=== PATIENT | male | born 1990 | race Caucasian/White ===

== ENCOUNTER 2019-05-10 13:07 | Emergency (ER) | payer SELFPAY | END 2019-05-10 13:34 | disposition home or self-care (01) | LOC: SCSER 13:07 | DX: F41.9 Anxiety disorder, unspecified (principal); Z87.891 Personal history of nicotine dependence | CPT/HCPCS: 99281 ==

== ENCOUNTER 2020-02-04 00:16 | Inpatient (IN) | payer SELFPAY ==
[2020-02-04] MEDS ORDERED: Ondansetron PF 4 MG/2 ML Vial IVP PRN (02:44)
[2020-02-04] MEDS ORDERED: Acetaminophen 325 MG TAB PO PRN (02:44)
[2020-02-04] MEDS ORDERED: Ondansetron ODT 4 MG TAB SL PRN (02:44)
[2020-02-04] MEDS ORDERED: Propofol 1,000 MG/100 ML VIAL IV ONE (02:45)
[2020-02-04] MEDS ORDERED: Lorazepam 2 MG/ML VIAL ONE (02:45)
[2020-02-04] MEDS: Lactated Ringer's 1,000 ML IV SCH ×2 (02:54→09:08)
[2020-02-04] MEDS ORDERED: Propofol 1,000 MG/100 ML VIAL IV PRN (02:54)
[2020-02-04] MEDS ORDERED: Morphine 2 MG/ML VIAL SLOW IVP PRN (02:54)
[2020-02-04] MEDS ORDERED: DISCONTINUE PREVIOUS NARCOTIC PAIN MEDICATIONS AND BENZODIAZEPINES FS SCH (02:54)
[2020-02-04] MEDS ORDERED: fentaNYL Citrate/PF 2,000 MCG in Sodium Chloride 0.9% 60 ML IV SCH (02:54)
[2020-02-04] MEDS ORDERED: Fentanyl BOLUS 250 ML IVPB PRN (02:54)
[2020-02-04] MEDS ORDERED: Propofol BOLUS 1,000 MG/100 ML VIAL IV PRN (02:54)
[2020-02-04] MEDS ORDERED: Ventilator Sedation Protocol 1 EACH FS SCH (03:23)
[2020-02-04] MEDS ORDERED: hydrALAZINE 20 MG/ML VIAL SLOW IVP PRN (03:23)
[2020-02-04] MEDS: Lorazepam 2 MG/ML VIAL SLOW IVP PRN ×5 (03:36→14:23)
[2020-02-04] MEDS: levETIRAcetam In NaCl (Iso-Os) 1,000 MG in Premix Bag 1 BAG IVPB SCH ×2 (03:44→16:10)
--- NOTE | 2020-02-04 03:55 | HP ---
REASON FOR ADMISSION: Change in mental status. HISTORY OF PRESENT ILLNESS: This is a 29-year-old male patient, who presented to the emergency room with change in mental status. 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 When EMS arrived, the patient was still able to move, but then he had multiple episodes of vomiting, became more sedated. He did receive 4 mg of Narcan intranasally given by the police, then received 1 mg of IV Narcan, but there was no response and for that reason, he was intubated and transferred to our intensive care unit. Currently, he does have episodes where he starts twitching and stiffening as if he was having seizures. He is being given IV Ativan. PAST PSYCHIATRIC HISTORY: Positive for anxiety. SOCIAL HISTORY: He does have history of drug abuse. Drinks occasionally and socially. He is a former smoker. FAMILY HISTORY: No known family history. REVIEW OF SYSTEMS: Unable to obtain due to the fact that he is intubated. PHYSICAL EXAMINATION: GENERAL: He is intubated. VITAL SIGNS: His blood pressure is 145/101, his heart rate is 164. He is afebrile. HEENT: Head is nontraumatic, normocephalic. Pupils are pinpoint and nonreactive. NECK: Supple. HEART: S1, S2 regular. No murmur. No gallops. No friction rubs. No displacement of PMI. LUNGS: Clear to auscultation bilaterally. No wheezes, rhonchi, no crackles. Bowel sounds are positive. Nontender abdomen. No hepatosplenomegaly. EXTREMITIES: No lower extremity edema. No cyanosis. NEUROLOGIC: He is sedated, but sometimes he does act as if he was having a tonic-clonic seizure. LABORATORY DATA: Blood work shows WBC of 13.5, hemoglobin 14.5, platelets 388. Sodium 144, potassium 3.8, bicarb 24, creatinine 1. His urine tox screen is positive for amphetamine, methamphetamine, cannabinoids. Urinalysis shows rbc's, but no wbc's. A chest x-ray shows no acute cardiopulmonary abnormality. A CT of the head shows no acute intracranial abnormalities. ASSESSMENT AND PLAN: This is a 29-year-old male patient who is presenting after what seems to be in drug overdose versus withdrawal from the medication that he has been on. He is exhibiting possible episodes of seizures while he is on the ventilator. His blood pressure is on the high side. Pulmonary: The patient is intubated and will have pulmonary see him in consultation. Neurology: He possibly has seizures. I will start him on Keppra and we will put him down for an EEG. He will be on IV fluids. For his high blood pressure, we will have him on hydralazine. DVT prophylaxis with SCDs. One hour of critical care time was spent to manage the patient. Job ID: [id number]
[2020-02-04 05:18] VITALS: BMI 17.6
[2020-02-04 06:23] LABS: #Lymphocytes 1.1 thou/uL (1.20-3.40); #Monocytes 0.9 thou/uL (0.11-0.59); #Neutrophils 13.1 thou/uL (1.40-6.50); %Basophils 0.2 % (0.0-1.0); %Eosinophils 0.1 % (0.0-10.0); %Lymphocytes 7.3 % (21.0-51.0); %Monocytes 5.7 % (0.0-10.0); %Neutrophils 86.6 % (42.0-75.0); Hemoglobin 13.4 g/dL (14.0-18.0); Mean Corpuscular HGB CONC 32.6 g/dL (32.0-36.0); Mean Corpuscular Hemoglobin 28.9 pg (27.0-31.0); Mean Corpuscular Volume 88.5 fL (78.0-98.0); Mean Platelet Volume 7.2 fL (7.4-10.4); Platelet Count 303 thou/uL (130-400); RBC Distribution Width 12.3 % (11.5-14.5); Red Blood Cell (RBC) Count 4.63 mill/uL (4.70-6.10); White Blood Cell (WBC) Count 15.2 thou/uL (4.8-10.8)
[2020-02-04 06:48] LABS: Anion Gap 13 mmol/L (10-20); BUN (Urea Nitrogen) 11 mg/dL (8.9-20.6); CK (CPK) 56 U/L (30-200); Calc. Creatinine Clearance 129 mL/min (70-130); Calcium 8.9 mg/dL (7.8-10.44); Carbon Dioxide 26 mmol/L (22-29); Chloride 104 mmol/L (98-107); Estimated GFR-MDRD Greater than 90; Glucose 104 mg/dL (70-105); Sodium 140 mmol/L (136-145)
[2020-02-04 07:40] LABS: Actual Bicarbonate (HCO3a) 23.5 mEq/L (22-28); Base Excess (BEa) 1.6 mEq/L (-2.0 to +3.0); CO2 Tension 29.2 mmHg (35.0-45.0); Calcium, Ionized (arterial) 1.15 mmol/L (1.12-1.30); Carboxyhemoglobin (COHb) 0.1 gm% (0.0-3.0); Hemoglobin (Hb) 13.2 g/dL (14.0-18.0); O2 Tension (PaO2), arterial 142.2 mmHg (80.0-100.0); Potassium - ABG Lab 3.27 mmol/L (3.70-5.30); pH, Arterial 7.52 (7.35-7.45)
[2020-02-04 10:09] LABS: Puncture Site L.R.
--- NOTE | 2020-02-04 13:08 | EEG ---
DATE OF SERVICE: 02/04/2020 ATTENDING PHYSICIAN: Jaci Cleaning MD This EEG was performed using 24-channel [employer] video digital EEG machine with 24 disk electrodes. This was an extended 2 hours 10 minutes of inpatient video EEG recording. Digital analysis of the EEG was done for spike and seizure detection which revealed no abnormalities. BACKGROUND: There is a nonsustained posterior background rhythm. Minimal reactivity is seen with eye opening and closure. PDR 9-10 Hz when sedation was turned off briefly. HYPERVENTILATION: Not performed. PHOTIC STIMULATION: Not performed. SLEEP: No drowsiness. Stage 2 sleep are not observed. EEG DIAGNOSES: 1. Intermittent, irregular theta activity is seen throughout the recording with superimposed beta activity. 2. Nonsustained posterior background rhythm. CLINICAL INTERPRETATION: This EEG is consistent with [id number] generalized nonspecific cerebral dysfunction. No ictal or interictal epileptiform abnormalities seen during the recording. Job ID: [id number] [facility]
[2020-02-04] MEDS ORDERED: Potassium Chloride 40 MEQ in Premix Bag 1 BAG IVPB SCH (13:15)
[2020-02-04] MEDS ORDERED: Potassium Chloride 40 MEQ in Sodium Chloride 0.9% 250 ML 250 ML IVPB SCH (14:00)
--- NOTE | 2020-02-04 14:32 | CON ---
NEUROLOGY CONSULTATION DATE OF CONSULTATION: 02/04/2020 REASON FOR CONSULTATION: Altered mental status. HISTORY OF PRESENT ILLNESS: Mr. Juarez is a 29-year-old male with medical history significant for anxiety and polysubstance abuse, presented to the emergency room with altered mental status. He has history of polysubstance abuse with heroin, fentanyl and methamphetamine. Per mother, he was planning to go to rehab. Per report when the EMS arrived, the patient was able to move, but he had multiple episodes of vomiting and became extremely somnolent. He received 4 mg of Narcan nasally by the police and then 1 mg of IV Narcan with no response, so he was intubated and transferred to the ICU for further evaluation. He was noted to have episodes of twitching and stiffening, so he was given Ativan and started on Keppra. Neurology was consulted for further evaluation. REVIEW OF SYSTEMS: Unobtainable due to patient's mental status. PAST MEDICAL HISTORY: Polysubstance abuse, anxiety. PAST SURGICAL HISTORY: None. FAMILY HISTORY: No known family history. SOCIAL HISTORY: The patient is a former smoker. He has history of polysubstance abuse with heroin, fentanyl and methamphetamine. Per mother, he was planning to go to rehab. ALLERGIES: NKDA PHYSICAL EXAMINATION: VITAL SIGNS: Blood pressure 145/100, pulse 80, respiratory rate 18. GENERAL: The patient is intubated and sedated. He does not follow commands and does not maintain eye contact. CVS: Regular rate and rhythm. CHEST: Clear. ABDOMEN: Soft. NECK: Supple. NEUROLOGICAL: Mental status: The patient is intubated and sedated. He does not follow commands. He does not maintain eye contact. Cranial nerves: Pupils are 4 mm, round, and reactive to light. Face symmetric. Tongue midline. Moves neck in both direction. Motor, muscle tone and bulk are normal. Minimal spontaneous movement of all 4 extremities seen. Sensory: Withdraws all 4 extremities to nailbed pressure. Cerebellar unable to assess secondary to the patient's mental status. Gait deferred due to patient's safety reason. Intubated and sedated. DATA REVIEWED: I reviewed the labs which were significant for urine tox screen. Positive for amphetamine, methamphetamine, and cannabinoids. Chest x-ray did not show any acute cardiopulmonary abnormality. Head CT reviewed, which was negative for acute intracranial pathology. ASSESSMENT AND PLAN: Mr. Juarez is a 29-year-old male with a history of polysubstance abuse, presented with altered mental status. Altered mental status seems to be multifactorial secondary to drug overdose versus withdrawal. He has spells characterized by twitching. The patient was started on Keppra. EEG reviewed and did not reveal any epileptiform activity. However, the patient is still heavily sedated. Recommend MRI to rule out acute intracranial pathology. Continue Keppra 1000 mg IV q.12 hours for now. We will repeat EEG once the patient is off sedation. Observe seizure precaution. Ativan 2 mg IV for seizure greater than 2 minutes. Neuro checks every 2 hours. Continue medical management per primary team. Plan discussed with the mother, nursing staff and the primary attending Dr. Euceda We will continue to follow. Thank you for the consult. Job ID: [id number] MTDD
[2020-02-04] MEDS ORDERED: Magnesium Sulfate 4 GM in Sodium Chloride 0.9% 250 ML 250 ML IVPB SCH (15:30)
--- NOTE | 2020-02-05 01:36 | CON ---
DATE OF CONSULTATION: HISTORY OF PRESENT ILLNESS: Mr. Juarez is a 29-year-old male. He has a history of drug abuse. He had a presentation with altered mental status. He required intubation because of his depressed mental status. He is admitted to the ICU. PAST MEDICAL HISTORY: No known drug abuse. FAMILY HISTORY: Unknown. SOCIAL HISTORY: Unknown. Apparently, he has a history of heroin, fentanyl, and methamphetamine use. ALLERGIES: HE HAS NO DRUG ALLERGIES. PHYSICAL EXAMINATION: VITAL SIGNS: Heart rate is in 80s, blood pressure is 117/76, respiratory rates in the teens, and oximetry is 100%. HEENT: Pupils are equal and sluggish. NECK: Supple. No lymphadenopathy. LUNGS: Clear. HEART: Regular rhythm. ABDOMEN: Soft. EXTREMITIES: Without clubbing, cyanosis, or edema. LABORATORY DATA: White count 15.2, hemoglobin 13.4, and platelets 303. Electrolytes normal. Potassium is 3 and magnesium is 1.5. A pH of 7.52, CO2 of 29, and pO2 of 142. IMPRESSION AND PLAN: Respiratory failure, presumably secondary to a drug overdose. With his history of multiple drug use, certainly possible that he has drugs in his system that are not detectable by drug screen. He had been on amphetamines and methamphetamines on his drug screen, but there are other drugs such as fentanyl would do not test out. We will continue supportive care. His family nursing staff and the hospitalist that this will be a slow process until his neurological status improves to a point, where he is back to near his baseline, he cannot be extubated. CRITICAL CARE TIME: 30 minutes. Job ID: [id number]
[2020-02-05] MEDS: Lorazepam 2 MG/ML VIAL SLOW IVP PRN (03:08)
[2020-02-05 03:22] LABS: #Eosinphils 0.1 thou/uL (0.0-0.7); #Lymphocytes 1.9 thou/uL (1.20-3.40); #Monocytes 0.9 thou/uL (0.11-0.59); #Neutrophils 10.1 thou/uL (1.40-6.50); %Basophils 0.3 % (0.0-1.0); %Eosinophils 0.6 % (0.0-10.0); %Lymphocytes 14.5 % (21.0-51.0); %Monocytes 7.1 % (0.0-10.0); %Neutrophils 77.6 % (42.0-75.0); Hemoglobin 13.1 g/dL (14.0-18.0); Mean Corpuscular HGB CONC 33.7 g/dL (32.0-36.0); Mean Corpuscular Hemoglobin 30.4 pg (27.0-31.0); Mean Corpuscular Volume 90.3 fL (78.0-98.0); Mean Platelet Volume 7.6 fL (7.4-10.4); Platelet Count 295 thou/uL (130-400); RBC Distribution Width 12.2 % (11.5-14.5)
[2020-02-05 04:07] LABS: ALT (SGPT) 35 U/L (8-55); AST (SGOT) 27 U/L (5-34); Albumin 3.5 g/dL (3.5-5.0); Alkaline Phosphatase 58 U/L (40-110); Anion Gap 10 mmol/L (10-20); BUN (Urea Nitrogen) 7 mg/dL (8.9-20.6); Bilirubin, Total 0.5 mg/dL (0.2-1.2); Calc. Creatinine Clearance 133 mL/min (70-130); Calcium 8.6 mg/dL (7.8-10.44); Carbon Dioxide 24 mmol/L (22-29); Chloride 104 mmol/L (98-107); Estimated GFR-MDRD Greater than 90; Globulin 2.8 g/dL (2.4-3.5); Glucose 87 mg/dL (70-105); Magnesium 2.4 mg/dL (1.6-2.6); Potassium 4.7 mmol/L (3.5-5.1); Protein, Total 6.3 g/dL (6.0-8.3); Sodium 133 mmol/L (136-145)
[2020-02-05] MEDS: levETIRAcetam In NaCl (Iso-Os) 1,000 MG in Premix Bag 1 BAG IVPB SCH (04:20)
--- NOTE | 2020-02-05 12:28 | PDOC.HOSPP ---
- Subjective Encounter Date: 02/05/20 Subjective: NEUROLOGY PROGRESS NOTE Patient continues to be intubated but more awake today. Still confused and agitated. EEG negative for seizure activity. - Objective Vital Signs & Weight: Vital Signs (12 hours) Temp Pulse Resp BP Pulse Ox 02/05/20 12:00 99 02/05/20 10:00 19 02/05/20 08:00 98.3 F 17 100 02/05/20 07:31 82 100/58 L 02/05/20 06:00 13 02/05/20 04:00 98.5 F 11 L 02/05/20 02:21 84 114/73 02/05/20 02:00 13 Weight Admit Weight 141 lb 1.52 oz Weight 141 lb 1.52 oz Most Recent Monitor Data Heart Rate from ECG 97 NIBP 114/81 NIBP BP-Mean 92 Respiration from ECG 18 SpO2 98 I&O: 02/04/20 02/05/20 02/06/20 06:59 06:59 06:59 Intake Total 540.5 2145.5 46 Output Total 660 2130 830 Balance -119.5 15.5 -784 Result Diagrams: 02/05/20 03:07 02/05/20 03:07 Additional Labs: Accuchecks 02/04/20 15:15 POC Glucose 146 H Radiology Reviewed by me: Yes EKG Reviewed by me: Yes Hospitalist ROS - Review of Systems ROS unobtainable: due to endotracheal tube - Medication Medications: Active Medications Generic Name Dose Route Start Last Admin Trade Name Freq PRN Reason Stop Dose Admin Fentanyl Citrate 2,000 mcg/ 100 mls @ 0 mls/hr 02/04/20 02:54 02/04/20 03:51 Sodium Chloride IV 03/05/20 02:54 100 mls INF MARTY Administration Protocol Per Protocol Levetiracetam 1,000 mg/ Device 100 mls @ 200 mls/hr 02/04/20 04:00 02/05/20 04:20 IVPB 100 mls 0400,1600 MARTY Administration Dexmedetomidine HCl 400 mcg/ 100 mls @ 0 mls/hr 02/04/20 12:45 02/05/20 04:43 Sodium Chloride IVPB 100 mls INF MARTY Administration Protocol Titrate Lorazepam 2 mg 02/04/20 02:54 02/05/20 03:08 Ativan SLOW IVP 03/05/20 02:54 2 mg Q1H PRN Administration Breakthrough agitation Propofol 1,000 mg 02/04/20 02:54 02/05/20 04:17 Diprivan IV 03/05/20 02:54 1,000 mg INF PRN Administration TO ACHIEVE GOAL RASS Protocol - Exam General Appearance: awake alert Eye: PERRL ENT: normocephalic atraumatic Neck: supple Heart: RRR Respiratory: CTAB Gastrointestinal: soft Extremities: no cyanosis Skin: normal turgor Neurological: no focal deficits, no new deficit Musculoskeletal: normal tone, no muscle wasting (agitated and intibated) Hosp A/P (1) AMS (altered mental status) Code(s): R41.82 - ALTERED MENTAL STATUS, UNSPECIFIED Status: Acute (2) Drug overdose Code(s): T50.901A - POISONING BY UNSP DRUG/MEDS/BIOL SUBST, ACCIDENTAL, INIT Status: Acute - Plan PT/OT, speech therapy 29 year old consulted for seizure like episodes and altered mental status. History significant for polysubstance abuse. Currently intubated. EEG reviewed and is negative for seizure activity. Continue Keppra for now. Observe seizure precautions. Will repeat EEG after extubation. Neurochecks every 4 hours. Consider ,MRI Brain when stable. Continue medical management per primary team.
[2020-02-05] MEDS ORDERED: DC Sedation Protocol FS ONE (12:33)
--- NOTE | 2020-02-05 12:40 | PRG ---
DATE OF SERVICE: 02/05/2020 SUBJECTIVE: Orlando Juarez was evaluated this morning. He met criteria for extubation. Since he was extubated, he started cussing at me and the nurses. We tried to contact family. Apparently, the mother spent 30 minutes yelling at the neurologist yesterday. He is on room air now. OBJECTIVE: VITAL SIGNS: Stable. His blood pressure 114/81, oximetry is 97% on room air, respiratory rate is in the teens. HEART: Unchanged. ABDOMEN: Unchanged. LUNGS: Clear. There is no evidence that he aspirated. LABORATORY DATA: White count 13, hemoglobin 13.1, and platelets 295. Electrolytes are unremarkable. IMPRESSION: 1. Multiple drug overdoses, status post mechanical ventilation. 2. Long history of multiple drug abuse. He is living apparently with his grandmother and his mother relayed to the physicians who talked to them yesterday that she is convinced he is not using drugs. The clinical course here would argue otherwise. 3. I have informed the nurses that if he is stable till noon family can come pick him up and take him home. There is no reason to keep him here or tolerate his verbally abusive behavior in my opinion, and he clearly is medically stable. Job ID: [id number]
--- NOTE | 2020-02-05 16:30 | EEG ---
DATE OF SERVICE: 02/05/2020 ATTENDING PHYSICIAN: Jaci Cleaning MD This EEG was performed using 24-channel [employer] video digital EEG machine with 24 disk electrodes. This was a routine EEG recording. BACKGROUND: The posterior background rhythm is 8 to 9 hertz. Minimal reactivity is seen with eye opening and closure. HYPERVENTILATION: No significant response seen with hyperventilation. PHOTIC STIMULATION: No significant response seen with photic stimulation. SLEEP: Drowsiness is observed. EEG DIAGNOSES: 1. Intermittent irregular delta activity seen in both right and left frontal regions. 2. Intermittent irregular theta activity seen throughout the recording. 3. Nonsustained posterior background rhythm. CLINICAL INTERPRETATION: This EEG is consistent with focal cerebral dysfunction in the frontal regions. There is also evidence of mild generalized nonspecific cerebral dysfunction. No ictal or interictal epileptiform abnormalities seen during the recording. Job ID: [id number]
[2020-02-05] MEDS ORDERED: Ondansetron PF 4 MG/2 ML Vial IVP PRN (16:53)
[2020-02-05] MEDS ORDERED: Dicyclomine 10 MG CAP PO PRN (16:53)
[2020-02-05] MEDS ORDERED: Ondansetron ODT 4 MG TAB PO PRN (16:53)
[2020-02-05] MEDS ORDERED: Nicotine 14 MG PATCH TD PRN (16:53)
[2020-02-05] MEDS: Cyclobenzaprine 10 MG TAB PO PRN (17:31)
[2020-02-05] MEDS ORDERED: ALPRAZolam 0.25 MG TAB PO SCH (19:00)
[2020-02-05] MEDS: levETIRAcetam 500 MG TAB PO SCH (20:07)
[2020-02-05] MEDS: Melatonin 3 MG TAB PO PRN (20:07)
--- NOTE | 2020-02-06 00:11 | PDOC.HOSPP ---
- Subjective Encounter Date: 02/05/20 Encounter Time: 14:00 Subjective: Patient seen and examined for encephalopathy. No new focal deficits or seizures. Extubated. No new complaints. No overnight events - Objective Vital Signs & Weight: Vital Signs (12 hours) Temp Pulse Resp BP Pulse Ox 02/05/20 19:55 99.3 F 120 H 22 H 133/79 100 02/05/20 15:11 106 H 17 122/82 Weight Admit Weight 141 lb 1.52 oz Weight 141 lb 1.52 oz Most Recent Monitor Data Heart Rate from ECG 95 NIBP 115/76 NIBP BP-Mean 89 Respiration from ECG 23 SpO2 100 I&O: 02/04/20 02/05/20 02/06/20 06:59 06:59 06:59 Intake Total 540.5 2145.5 606 Output Total 660 2130 980 Balance -119.5 15.5 -374 Result Diagrams: 02/05/20 03:07 02/05/20 03:07 EKG Reviewed by me: Yes (Tele SR) Hospitalist ROS - Review of Systems Respiratory: denies: cough, dry, shortness of breath, hemoptysis, SOB with excertion, pleuritic pain, sputum, wheezing, other Cardiovascular: denies: chest pain, palpitations, orthopnea, paroxysmal noc. dyspnea, edema, light headedness, other - Medication Medications: Active Medications Generic Name Dose Route Start Last Admin Trade Name Freq PRN Reason Stop Dose Admin Cyclobenzaprine HCl 10 mg 02/05/20 16:53 02/05/20 17:31 Flexeril PO 02/06/20 16:54 10 mg TID PRN Administration Muscle Spasm Dexmedetomidine HCl 400 mcg/ 100 mls @ 0 mls/hr 02/04/20 12:45 02/05/20 04:43 Sodium Chloride IVPB 100 mls INF MARTY Administration Protocol Titrate Levetiracetam 1,000 mg 02/05/20 21:00 02/05/20 20:07 Keppra PO 1,000 mg BID MARTY Administration Melatonin 3 mg 02/05/20 16:54 02/05/20 20:07 Melatonin PO 3 mg HS PRN Administration Insomnia Nicotine 14 mg 02/05/20 16:53 02/05/20 17:31 Nicoderm Patch TD 14 mg Q24H PRN Administration Smoking craving Sodium Chloride 10 ml 02/04/20 02:44 02/05/20 20:08 Flush - Normal Saline IVF 10 ml PRN PRN Administration Saline Flush - Exam General Appearance: NAD Neck: supple, no JVD Heart: no murmur, no rubs Respiratory: no wheezes, no rales Gastrointestinal: soft, non-tender, normal bowel sounds Extremities: no cyanosis Hosp A/P - Plan DVT proph w/SCDs Toxic Metabolic Encephalopathy/Acute hypoxic resp failure due to Polysubstance abuse Seizure Anxiety Tobacco dep PLAN: Extubated today EEG today Change IV Keppra to PO [facility] eval Transfer to stroke Cont other meds
[2020-02-06] MEDS ORDERED: ALPRAZolam 0.25 MG TAB PO SCH (00:45)
[2020-02-06 05:24] LABS: #Eosinphils 0.1 thou/uL (0.0-0.7); #Lymphocytes 1.7 thou/uL (1.20-3.40); #Monocytes 0.9 thou/uL (0.11-0.59); #Neutrophils 5.5 thou/uL (1.40-6.50); %Basophils 0.3 % (0.0-1.0); %Eosinophils 1.1 % (0.0-10.0); %Lymphocytes 20.1 % (21.0-51.0); %Neutrophils 67.5 % (42.0-75.0); Hemoglobin 13.5 g/dL (14.0-18.0); Mean Corpuscular Hemoglobin 29.3 pg (27.0-31.0); Mean Corpuscular Volume 88.9 fL (78.0-98.0); Mean Platelet Volume 7.3 fL (7.4-10.4); Platelet Count 328 thou/uL (130-400); RBC Distribution Width 11.9 % (11.5-14.5); Red Blood Cell (RBC) Count 4.61 mill/uL (4.70-6.10); White Blood Cell (WBC) Count 8.2 thou/uL (4.8-10.8)
[2020-02-06 05:45] LABS: ALT (SGPT) 51 U/L (8-55); AST (SGOT) 46 U/L (5-34); Albumin 3.7 g/dL (3.5-5.0); Alkaline Phosphatase 72 U/L (40-110); Anion Gap 12 mmol/L (10-20); BUN (Urea Nitrogen) 8 mg/dL (8.9-20.6); Bilirubin, Total 0.3 mg/dL (0.2-1.2); Calc. Creatinine Clearance 126 mL/min (70-130); Calcium 8.8 mg/dL (7.8-10.44); Carbon Dioxide 25 mmol/L (22-29); Chloride 107 mmol/L (98-107); Estimated GFR-MDRD Greater than 90; Globulin 3.2 g/dL (2.4-3.5); Glucose 106 mg/dL (70-105); Magnesium 2.1 mg/dL (1.6-2.6); Potassium 4.1 mmol/L (3.5-5.1); Protein, Total 6.9 g/dL (6.0-8.3); Sodium 140 mmol/L (136-145)
[2020-02-06] MEDS: Cyclobenzaprine 10 MG TAB PO PRN ×2 (09:04→19:08)
[2020-02-06] MEDS: levETIRAcetam 500 MG TAB PO SCH ×2 (09:04→20:23)
[2020-02-06] MEDS: ALPRAZolam 0.25 MG TAB PO PRN ×2 (10:38→17:28)
[2020-02-06] MEDS: Nicotine 21 MG PATCH TD PRN (10:38)
--- NOTE | 2020-02-06 11:36 | PDOC.HOSPP ---
- Subjective Encounter Date: 02/06/20 Encounter Time: 10:10 Subjective: pt seen, resting, no AMS. talk to RN. MRI not ordered? - Objective Vital Signs & Weight: Vital Signs (12 hours) Temp Pulse Resp BP Pulse Ox 02/06/20 07:42 98.0 F 91 14 123/71 99 02/06/20 00:30 114 H 124/64 Weight Admit Weight 141 lb 1.52 oz Weight 141 lb 1.52 oz Most Recent Monitor Data Heart Rate from ECG 95 NIBP 115/76 NIBP BP-Mean 89 Respiration from ECG 23 SpO2 100 I&O: 02/05/20 02/06/20 02/07/20 06:59 06:59 06:59 Intake Total 2145.5 606 Output Total 2130 980 Balance 15.5 -374 Result Diagrams: 02/06/20 05:06 02/06/20 05:06 Hospitalist ROS - Medication Medications: Active Medications Generic Name Dose Route Start Last Admin Trade Name Freq PRN Reason Stop Dose Admin Alprazolam 0.25 mg 02/06/20 09:38 02/06/20 10:38 Xanax PO 0.25 mg TIDPRN PRN Administration Anxiety Cyclobenzaprine HCl 10 mg 02/05/20 16:53 02/06/20 09:04 Flexeril PO 02/06/20 16:54 10 mg TID PRN Administration Muscle Spasm Levetiracetam 1,000 mg 02/05/20 21:00 02/06/20 09:04 Keppra PO 1,000 mg BID MARTY Administration Melatonin 3 mg 02/05/20 16:54 02/05/20 20:07 Melatonin PO 3 mg HS PRN Administration Insomnia Nicotine 21 mg 02/06/20 09:38 02/06/20 10:38 Nicoderm Patch TD 21 mg Q24H PRN Administration Smoking craving Sodium Chloride 10 ml 02/04/20 02:44 02/05/20 20:08 Flush - Normal Saline IVF 10 ml PRN PRN Administration Saline Flush - Exam General Appearance: NAD, awake alert Eye: PERRL ENT: normocephalic atraumatic Neck: supple Heart: RRR Respiratory: CTAB, normal chest expansion Gastrointestinal: soft, normal bowel sounds Neurological: no focal deficits Psychiatric: normal affect, normal behavior, A&O x 3 Hosp A/P - Plan Toxic Metabolic Encephalopathy/ Drug oD--no suicidal ideation. Seizure Anxiety Tobacco dep acute hypoxic resp failure due to Polysubstance abuse -required intubation - Extubated on EEG --no epileptiform discharge Change IV Keppra to PO [facility] eval---ordered on will get MRI and [facility] eval. once those cleared, then plan for dc home. PT CLINICALLY STABLE AND CLEARED FOR [facility] EVALUATION.
[2020-02-06] MEDS: Cepastat Lozenges 1 LOZ PO PRN ×2 (12:25→19:08)
--- NOTE | 2020-02-06 13:57 | MRI ---
MRI BRAIN WITH AND WITHOUT CONTRAST: DATE: 02/06/2020 HISTORY: 29-year-old male with seizure TECHNIQUE: Multiplanar, multisequence MRI of the brain obtained pre and post IV injection of gadolinium based co ntrast agent. FINDINGS: The ventricles are normal in size and configuration. There is no midline shift or any other evidence of mass effect. There is no extra-axial fluid collection. There is no intra-axial signal abnormality, abnormal enhancement, mass, recent hemorrhage, or restricted diffusion. Mesial temporal lobes are bilaterally unremarkable. Normal corpus callosum. No Chiari I malformation. No evidence of migration abnormality. IMPRESSION: Normal
[2020-02-06] MEDS ORDERED: Magnevist 469MG/ML 20 ML VIAL ONE (15:04)
[2020-02-07] MEDS: Nicotine 21 MG PATCH TD PRN (01:13)
[2020-02-07] MEDS: Melatonin 3 MG TAB PO PRN (01:13)
[2020-02-07] MEDS: ALPRAZolam 0.25 MG TAB PO PRN ×3 (01:16→15:32)
[2020-02-07] MEDS: Cepastat Lozenges 1 LOZ PO PRN (04:49)
[2020-02-07] MEDS: Cyclobenzaprine 10 MG TAB PO PRN ×2 (09:23→15:33)
[2020-02-07] MEDS: levETIRAcetam 500 MG TAB PO SCH (09:23)
[2020-02-07 15:59] VITALS: BP 116/88; TEMP 98.3
--- NOTE | 2020-02-07 22:32 | DIS ---
DATE OF ADMISSION: 02/04/2020 DATE OF DISCHARGE: 02/07/2020 DISCHARGE DIAGNOSES: 1. Toxic metabolic encephalopathy. 2. Drug overdose. 3. Questionable seizure secondary to drug overdose. MRA is negative. 4. Anxiety. 5. Tobacco dependence. 6. Acute hypoxic respiratory failure due to polysubstance abuse requiring intubation and extubated on February 04. DISCHARGE MEDICATIONS: 1. Advised to have melatonin as needed for bedtime. 2. Nicotine patch for smoking cessation. PHYSICAL EXAMINATION: VITAL SIGNS: On the day of discharge, the patient is afebrile. Temperature 98.7, pulse 101, blood pressure 142/91, saturating 100% on room air. GENERAL: The patient is alert, oriented, sitting comfortably in the room. He is in agreeable for the discharge plan. He requested whether he can get the Flexeril. I counseled him, no strong clinical indication for that. I also advised him to follow up with Mental Health, clinic number is given to him at the time of discharge. I talked to the sister at length over the phone. They determined to follow up with Mental Health for drug rehab program in next 2-3 weeks. CARDIOVASCULAR: Regular rate and rhythm without murmurs, rubs, or gallops. LUNGS: Clear to auscultation bilaterally without wheezing, rales, or rhonchi. ABDOMEN: Soft, nontender, nondistended. Good bowel sounds. EXTREMITIES: Without any pitting edema. HOSPITAL COURSE: For details of his hospitalization, please refer to history and physical and daily progress notes. Briefly, this is a 29-year-old man, admitted with change in mental status with a history of heroin, fentanyl, and methamphetamine abuse. He was planning to go for drug rehab plan. However, noted to have multiple episodes of vomiting and became very somnolent on EMS arrival. He was brought in here for further workup. It was noted that he had some questionable seizure at the time of arrival in the ER. He was also noted to have hypertensive urgency. He was intubated and started on antiepileptic Keppra. Over the course of the time, he was extubated and monitored in the medical floor. A MRI of the brain negative for any acute intracranial abnormality. Electroencephalogram was negative for any epileptiform discharges. Neurology followed. On the day of discharge, I talked to Neurology on-call, Dr. Welsh as well as neurologist, Dr. Cleaning, who followed him prior to this weekend. They are agreeable for not sending him home with Keppra as it is not clinically indicated at this time. His seizure-like activity noted during the time of admission is probably due to drug overdose with history of significant polysubstance abuse. The patient remains stable. I talked to the sister a couple of times over the phone at length and the family is very supportive of him going to the drug rehab and they plan to help him throughout his course. sister Juid at [phone]. Patient is clinically stable to be discharged home today. DISCHARGE INSTRUCTION: Activity as tolerated. Regular diet. Follow up with PCP in 1 week. Follow up with [facility] as given by their appointment. Discharge time took over 35 minutes. Job ID: [id number] [facility]
== END 2020-02-07 17:15 | disposition home or self-care (01) | DRG 917 ==
LOC: CCU 02:25 → 2SE 02-05 14:57
PROVIDERS: ADMIT Internal Medicine; ATTEND Internal Medicine
PROC: 0BH17EZ Insertion of Endotracheal Airway into Trachea, Via Natural or Artificial Opening (ICD-10-PCS; principal; 2020-02-04)
PROC: 5A1935Z Respiratory Ventilation, Less than 24 Consecutive Hours (ICD-10-PCS; 2020-02-04)
DX: T43.622A Poisoning by amphetamines, intentional self-harm, initial encounter (principal); G92 Toxic encephalopathy; J96.01 Acute respiratory failure with hypoxia; F19.10 Other psychoactive substance abuse, uncomplicated; F41.9 Anxiety disorder, unspecified; I16.0 Hypertensive urgency; Z87.891 Personal history of nicotine dependence
CPT/HCPCS: 36415; 36416; 70553; 80048; 80053; 82550; 82805; 83735; 85025; 94002; 94003; 95712; 95816; 95819; 95957; A9579; J1953; J2060; J2704; J3010; J3475; J3480; J3490; J7050

== ENCOUNTER 2025-03-26 13:51 | Emergency (ER) | payer OTHER | END 2025-03-26 15:20 | disposition home or self-care (01) | LOC: ERS 13:51 | DX: S20.211A Contusion of right front wall of thorax, initial encounter (principal); I10 Essential (primary) hypertension; F17.290 Nicotine dependence, other tobacco product, uncomplicated; Y04.0XXA Assault by unarmed brawl or fight, initial encounter | CPT/HCPCS: 71046; 93005 ==